=== PATIENT | male | born 1970 | race Caucasian/White ===

== ENCOUNTER 2019-11-29 09:52 | Emergency (ER) | payer MEDICAID ==
[~2019-11-29] VITALS: Ht 190.5 cm; Wt 78.0 kg
[2019-11-29 10:05] VITALS: BP_SYST 127
[2019-11-29 10:23] VITALS: BP_SYST 127
== END 2019-11-29 10:23 | disposition home or self-care (01) ==
LOC: SED 09:52
DX: K08.89 Other specified disorders of teeth and supporting structures (principal)
CPT/HCPCS: 99283